=== PATIENT | male | born 1975 | race Caucasian/White ===

== ENCOUNTER 2017-12-30 21:03 | Emergency (ER) | payer SELFPAY ==
[~2017-12-30] VITALS: Ht 175.3 cm; Wt 86.2 kg
[2017-12-30 21:11] VITALS: BP 127/86
[2017-12-30] MEDS ORDERED: KEFLEX500 MG PO (23:13)
[2017-12-30] MEDS ORDERED: NORCO 5/3251 TABLET PO (23:13)
== END 2017-12-31 00:22 | disposition home or self-care (01) ==
LOC: EME 21:03 → EXP 21:03
PROC: 0HDGXZZ Extraction of Left Hand Skin, External Approach (ICD-10-PCS; principal; 2017-12-30)
DX: S61.012A Laceration without foreign body of left thumb without damage to nail, initial encounter (principal); W23.0XXA Caught, crushed, jammed, or pinched between moving objects, initial encounter; Y99.0 Civilian activity done for income or pay; Z72.0 Tobacco use
CPT/HCPCS: 73140; 99281; 99284; S0020